=== PATIENT | female | born 1960 | race American Indian/Alaskan Native ===

== ENCOUNTER 2020-08-23 09:08 | Outpatient (CLI) | payer BC ==
--- NOTE | 2020-08-23 11:23 | Ultrasound Report ---
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 COMPARISON: None available. FINDINGS: PANCREAS: No significant abnormality. ABDOMINAL AORTA: No significant abnormality. IVC: No significant abnormality. LIVER: Normal size measuring 15.0 cm. GALLBLADDER: Small echogenic gallstones. Negative sonographic Singh's sign. No significant gallbladd er wall thickening or pericholecystic fluid. BILE DUCTS: No significant abnormality. Common bile duct measures 2 mm. KIDNEYS: Right: No significant abnormality. Left: No significant abnormality. SPLEEN: Mildly enlarged at 12.8 cm. FREE FLUID: None. ADDITIONAL FINDINGS: None. IMPRESSION: 1. Normal size liver. Mild splenomegaly. 2. Cholelithiasis without evidence of acute cholecystitis. Signer Name: Raphael Donis MD Signed: 08/23/2020 11:18 AM Workstation Name: [id number]
== END 2020-08-23 09:09 | disposition home or self-care (01) ==
LOC: US 09:08
PROVIDERS: ATTEND Internal Medicine Hematology & Oncology
DX: K80.80 Other cholelithiasis without obstruction (principal); R16.1 Splenomegaly, not elsewhere classified; D69.6 Thrombocytopenia, unspecified
CPT/HCPCS: 76700